=== PATIENT | male | born 1970 | race Caucasian/White ===

== ENCOUNTER 2018-03-29 21:50 | Emergency (ER) | payer SELFPAY ==
[~2018-03-29] VITALS: Ht 170.1 cm; Wt 113.4 kg
--- NOTE | ~2018-03-29 | EKG ---
[place], [place] ELECTROCARDIOGRAM REPORT NAME: EFRA SCHAFER UNIT #: [id number] ROOM: DOCTOR: EPIPHANY DRAFT REPORT BIRTHDATE: [birth year] [facility] Test Date: 2018-03-29 Test Time: 22:33:38 Pat Name: FERA SCHAFER Department: ER Room: 5 Gender: M [employer] Research Scientist: Tamir Mckoy : 1970 Requested By: LOLIS SALDANA Order Number: [id number] Reading MD: Shamar Mendoza MD Measurements Intervals [place] Rate: 124 P: 43 MI: 144 QRS: 13 QRSD: 80 T: 36 QT: 293 QTc: 421 Interpretive Statements Sinus tachycardia Probable left atrial enlargement Baseline wander in lead(s) V2 Electronically Signed On 03-31-2018 8:21:49 PDT by Shamar Mendoza MD CM:EKGRPT:ELECTROCARDIOGRAM REPORT [id number] LOLIS LEE DRAFT REPORT LOLIS SALDANA DO
[2018-03-29] MEDS ORDERED: ASPIR LOW81 MG PO (22:03)
[2018-03-29] MEDS ORDERED: LIPITOR40 MG PO (22:04)
[2018-03-29] MEDS ORDERED: FAMOTIDINE20 M1 PO (22:05)
[2018-03-29] MEDS ORDERED: GRANIX SQ (22:06)
[2018-03-29 22:52] LABS: HEMOGLOBIN 10.6 g/dl (14.0-18.0); MEAN CELL VOLUME 87.1 fl (80.0-94.0); MEAN CORPUSCULAR HGB 29.8 pg (27.0-31.0); MEAN CORPUSCULAR HGB CONC 34.2 g/dl (33.0-37.0); MEAN PLATELET VOLUME 11.3 fl (9.6-12.3); PLATELET COUNT AUTOMATED 55 10*3/uL (130-400); RED BLOOD COUNT 3.56 10*6/uL (4.50-5.90); RED CELL DISTRI WIDTH 12.6 % (0-14.5)
[2018-03-29 23:10] LABS: ALBUMIN 2.6 gm/dl (3.1-4.5); ALKALINE PHOSPHATASE 56 U/L (45-117); BUN 46 mg/dl (7-24); CHLORIDE 102 mmol/L (98-107); POTASSIUM 4.4 mmol/L (3.5-5.1); SGOT/AST 14 IU/L (3-35); SGPT/ALT 11 U/L (12-78); SODIUM 134 mmol/L (136-145); TOTAL PROTEIN 6.1 gm/dL (6.4-8.2)
[2018-03-29 23:11] LABS: TROPONIN I < 0.015 ng/ml (<0.045)
[2018-03-29 23:14] LABS: WHITE BLOOD COUNT 0.2 10*3/uL (4.8-10.8)
[2018-03-29 23:37] LABS: BASOPHILS 2 % (0-1); PLATELET SUFFICIENCY LOW (NORMAL); POLYCHROMASIA SLIGHT; TOTAL CELLS COUNTED 100 #CELLS
[2018-03-30 00:11] LABS: BILIRUBIN NEGATIVE (NEGATIVE); BLOOD 3+ (NEGATIVE); CLARITY CLOUDY (CLEAR); COLOR YELLOW (YELLOW); GLUCOSE NEGATIVE (NEGATIVE); KETONE NEGATIVE (NEGATIVE); LEUKO ESTERASE NEGATIVE (NEGATIVE); NITRITE NEGATIVE (NEGATIVE); SPECIFIC GRAVITY 1.025 (1.005-1.030); UROBILINOGEN 0.2 E.U./dl (0.2-1.0)
[2018-03-30 00:29] LABS: BACTERIA 4+; CALCIUM OXALATE CRYSTALS 1+; RBC TNTC rbc/hpf (0-2)
== END 2018-03-30 02:36 | disposition short-term general hospital (02) ==
LOC: ED 21:50
PROVIDERS: Emergency Medicine
DX: A41.9 Sepsis, unspecified organism (principal); D70.9 Neutropenia, unspecified; R50.81 Fever presenting with conditions classified elsewhere; N39.0 Urinary tract infection, site not specified; Z79.82 Long term (current) use of aspirin; Z79.899 Other long term (current) drug therapy; L08.9 Local infection of the skin and subcutaneous tissue, unspecified; Z85.89 Personal history of malignant neoplasm of other organs and systems

== ENCOUNTER 2018-04-23 18:13 | Emergency (ER) | payer SELFPAY ==
[~2018-04-23] VITALS: Ht 182.8 cm; Wt 105.7 kg
--- NOTE | ~2018-04-23 | EKG ---
[place], [place] ELECTROCARDIOGRAM REPORT NAME: EFRA SCHAFER UNIT #: [id number] ROOM: DOCTOR: RENATE DRAFT REPORT BIRTHDATE: [birth year] [facility] Test Date: 2018-04-23 Test Time: 18:51:24 Pat Name: EFRA SCHAFER Department: ER Room: 8 Gender: M Road Cutter: NYA : 1970 Requested By: MICHAELA PINA Order Number: [id number] Reading MD: Gloria Sheldon MD Measurements Intervals [place] Rate: 105 P: 41 TN: 158 QRS: 58 QRSD: 85 T: 55 QT: 321 QTc: 425 Interpretive Statements Sinus tachycardia Abnormal R-wave progression, early transition Compared to ECG 03/29/2018 22:33:38 No significant changes Electronically Signed On 04-24-2018 10:49:23 PDT by Gloria Sheldon MD CM:EKGRPT:ELECTROCARDIOGRAM REPORT [id number] MICHAELA LEE DRAFT REPORT MICHAELA PINA DO
[~2018-04-23 18:13] MED LIST: ASPIR LOW81 MG PO; FAMOTIDINE20 M1 PO; GRANIX SQ; LIPITOR40 MG PO
[2018-04-23] MEDS ORDERED: BISACODYL5 MG PO (18:27)
[2018-04-23] MEDS ORDERED: CRANBERRY250 MG PO (18:28)
[2018-04-23] MEDS ORDERED: FLOMAX0.4 MG PO (18:28)
[2018-04-23] MEDS ORDERED: GABAPENTIN800 MG PO (18:28)
[2018-04-23] MEDS ORDERED: BYETTA10 MCG/0.1 SC (18:28)
[2018-04-23] MEDS ORDERED: KEPPRA500 MG PO (18:29)
[2018-04-23] MEDS ORDERED: HUMALOG100 UNIT/2 SQ ×2 (18:29→18:30)
[2018-04-23] MEDS ORDERED: LATANOPROST2.5 ML OP (18:30)
[2018-04-23] MEDS ORDERED: LORAZEPAM I2 MG/1 ML IM (18:31)
[2018-04-23] MEDS ORDERED: COZAAR25 M1 PO (18:32)
[2018-04-23] MEDS ORDERED: Methadone Hydro10 MG PO (18:32)
[2018-04-23] MEDS ORDERED: ATIVAN1 MG PO (18:32)
[2018-04-23] MEDS ORDERED: MILK OF MA400 MG/5 M PO (18:33)
[2018-04-23] MEDS ORDERED: RENAL VITAMIN0.8 MG PO (18:33)
[2018-04-23] MEDS ORDERED: MIRALAX119 GM PO (18:33)
[2018-04-23] MEDS ORDERED: TRADJENTA5 M1 PO (18:34)
[2018-04-23] MEDS ORDERED: TYLENOL325 M1 PO (18:34)
[2018-04-23] MEDS ORDERED: TOUJEO SOL300 UNIT/1 SQ (18:34)
[2018-04-23] MEDS ORDERED: VITAMIN D32000 UNI1 PO (18:35)
[2018-04-23 18:52] LABS: HEMATOCRIT 24.4 % (42.0-52.0); HEMOGLOBIN 8.3 g/dl (14.0-18.0); MEAN CELL VOLUME 87.1 fl (80.0-94.0); MEAN CORPUSCULAR HGB 29.6 pg (27.0-31.0); MEAN PLATELET VOLUME 10.2 fl (9.6-12.3); PLATELET COUNT AUTOMATED 124 10*3/uL (130-400); RED CELL DISTRI WIDTH 14.3 % (0-14.5)
[2018-04-23 19:08] LABS: ALBUMIN 2.9 gm/dl (3.1-4.5); ALKALINE PHOSPHATASE 81 U/L (45-117); BUN 31 mg/dl (7-24); CHLORIDE 100 mmol/L (98-107); CREATININE 2.23 mg/dL (0.70-1.30); LIPASE 224 U/L (73-393); POTASSIUM 4.2 mmol/L (3.5-5.1); SGOT/AST 8 IU/L (3-35); SGPT/ALT 11 U/L (12-78); SODIUM 134 mmol/L (136-145); TOTAL PROTEIN 7.3 gm/dL (6.4-8.2)
[2018-04-23 19:09] LABS: TROPONIN I < 0.015 ng/ml (<0.045)
[2018-04-23 19:14] LABS: ACT PARTIAL THROMBO TIME 28.8 SECONDS (20.8-31.5); INTERNATIONAL NORM RATIO 1.2 (2.0-3.5)
[2018-04-23 19:36] LABS: BASOPHILS 6 % (0-1); PLATELET SUFFICIENCY LOW (NORMAL); POLYCHROMASIA SLIGHT; TOTAL CELLS COUNTED 51 #CELLS
[2018-04-23 20:51] LABS: BILIRUBIN NEGATIVE (NEGATIVE); BLOOD 3+ (NEGATIVE); CLARITY SL CLOUDY (CLEAR); COLOR YELLOW (YELLOW); GLUCOSE NEGATIVE (NEGATIVE); KETONE NEGATIVE (NEGATIVE); LEUKO ESTERASE NEGATIVE (NEGATIVE); NITRITE NEGATIVE (NEGATIVE); PH 5.5 (5.0-9.0); SPECIFIC GRAVITY 1.025 (1.005-1.030); UROBILINOGEN 0.2 E.U./dl (0.2-1.0)
[2018-04-23 21:00] LABS: BACTERIA 2+; EPITHELIAL CELLS 0-2; MUCOUS TRACE; URIC ACID CRYSTALS TRACE
== END 2018-04-23 22:35 | disposition short-term general hospital (02) ==
LOC: ED 18:13
PROVIDERS: Emergency Medicine
DX: D70.9 Neutropenia, unspecified (principal); R50.81 Fever presenting with conditions classified elsewhere; A41.9 Sepsis, unspecified organism; Z79.82 Long term (current) use of aspirin; Z79.899 Other long term (current) drug therapy